=== PATIENT | female | born 2000 | race Two or more races ===

== ENCOUNTER 2020-02-20 02:59 | Emergency (ER) | payer MEDICAID, SELFPAY ==
[2020-02-20 03:11] VITALS: BMI 34.5
[2020-02-20 03:24] VITALS: BP 102/74; PULSE 94; RESP 20; TEMP 37.7; O2SAT 97
--- NOTE | 2020-02-20 03:36 | ED_ITS ---
HPI - URI/Sore Throat General Chief Complaint: Upper Respiratory Symptoms Stated Complaint: FLU LIKE SYMPTOMS Time Seen by Provider: 02/20/20 03:32 Source: patient Mode of arrival: ambulatory History of Present Illness HPI Narrative: This is a 20-year-old female with history of asthma who presents with concerns regarding sore throat cough some mild shortness of breath but states that she has lost her sense of taste and states that she has been having some chills. She reports that she has had COVID exposure via her sister. Related Data Previous Rx's Medication Instructions Recorded prednisone 40 mg PO DAILY 4 Days #8 tab 02/20/20 Allergies Allergy/AdvReac Type Severity Reaction Status Date / Time animal dander [ANIMAL HAIR] Allergy Unknown UNKNOWN Unverified 11/01/19 18:23 Review of Systems Review of Systems: Pertinent positives and negatives as stated in HPI 10 point review of systems is otherwise negative. PMFSH Past Medical History Source: nursing notes reviewed Medical History Asthma Social History Social History Alcohol intake: never Smoking Status: Never smoker Use of substances other than those prescribed or required for medical reasons: No Advance Directives: No Physical Exam Vital Signs: Vital Signs: Last Vital Signs Temp 99.9 F 02/20/20 03:24 Pulse 94 02/20/20 03:24 Resp 20 02/20/20 03:24 BP 102/74 02/20/20 03:24 Pulse Ox 97 02/20/20 03:24 Body Mass Index 34.5 VITAL SIGNS: Reviewed. GENERAL: Well developed, well nourished, in no acute distress. HEAD: Normocephalic/atraumatic, EYES: PERRLA, EOMI intact without pain EARS: Ext canals without abnormality, TMs non-bulging and non-erythematous NOSE: Nasal congestion OROPHARYNX: no oral lesions noted, posterior pharynx clear NECK: Supple, no adenopathy LUNGS: Good respiratory effort, bilateral expiratory wheezes noted, no attractions, no increased work of breathing SpO2<97> CARDIOVASCULAR: Regular rate and rhythm without noted murmurs, no JVD or lower extremity edema. ABDOMEN: Soft, non-tender, non-distended with bowel sounds. No rigidity. No guarding. No palpable masses or hernias noted NEUROLOGIC: Alert and oriented x 4. Course Course Course Narrative: This is a 20-year-old female with history and clinical presentation consistent with COVID-19 exposure, viral symptoms, and noted mild asthma like exacerbation without hypoxia or tachypnea. Patient will receive Bentyl in treatment and combination with prednisone as well as a COVID-19 swab. She was instructed to self or in until she was called with the results and will be placed on a short course of steroids. Discharge Plan Discharge Clinical Impression: Viral syndrome, Exposure to COVID-19 virus Asthma attack Qualifiers: Asthma severity: mild Asthma persistence: unspecified Qualified Code(s): J45.901 - Unspecified asthma with (acute) exacerbation Patient Disposition: Home, Self-Care Instructions: Asthma (ED), Viral Syndrome (ED) Additional Instructions: 1. Recommend [id number] Tylenol and/or ibuprofen for body aches, temperatures greater than 100.4 as directed on the outside packaging. 2. Increase fluids especially with water. 3. You are required to self quarantine as per the [facility] guidelines until you were called with the results of your COVID-19 teen testing. 4. Please follow-up with your primary care provider by calling the office this morning and setting up an appointment. Prescriptions: New prednisone 20 mg tablet 40 mg PO DAILY 4 Days Qty: 8 RF: 0 Referrals: [facility] [Primary Care Provider] - 2 days (Re-evaluation outpatient management of asthma.)
[2020-02-20] MEDS: Albuterol Sulfate 90 MCG 8 GM INHALER 4 PUFF INHALE (04:20)
[2020-02-20] MEDS: predniSONE 20 MG TABLET 40 MG PO (04:20)
== END 2020-02-20 04:30 | disposition home or self-care (01) ==
PROVIDERS: Emergency Provider Student in an Organized Health Care Education/Training Program
DX: B34.9 Viral infection, unspecified (principal); J45.901 Unspecified asthma with (acute) exacerbation; R05 Cough; R43.8 Other disturbances of smell and taste; Z20.828 Contact with and (suspected) exposure to other viral communicable diseases; Z79.899 Other long term (current) drug therapy
CPT/HCPCS: 36415; 99283; 99284; U0003

== ENCOUNTER 2020-07-13 00:25 | Emergency (ER) | payer MEDICAID, SELFPAY ==
--- NOTE | ~2020-07-13 | XR_ITS ---
EXAMINATION: XR CHEST CLINICAL INFORMATION: Shortness of breath COMPARISON: None TECHNIQUE: Frontal view of the chest was obtained. FINDINGS: The lungs are well expanded. There is no focal consolidation, edema, or effusion. No pneumothorax. The cardiomediastinal silhouette is within normal limits. No acute osseous abnormality. XR/XR chest 1V IMPRESSION: Clear lungs.
[2020-07-13 00:35] VITALS: BP 127/54; PULSE 81; RESP 18; TEMP 36.8; O2SAT 96; BMI 36.8
--- NOTE | 2020-07-13 01:21 | ED.ASTHMA ---
HPI - Asthma General Chief Complaint: Asthma Stated Complaint: SOB/cough Time Seen by Provider: 07/13/20 00:55 Source: patient Mode of arrival: ambulatory Limitations: no limitations History of Present Illness HPI Narrative: 20-year-old female came in for evaluation of shortness of breath. History of asthma, came in with 3 days of shortness of breath and expiratory wheezing, coughing with phlegm of clear white sputum. No fever, no sick contacts. No lower extremity swelling, no history of PE or DVT, no recent travel. Related Data Previous Rx's Medication Instructions Recorded prednisone 40 mg PO DAILY 4 Days #8 tab 02/20/20 albuterol sulfate [ProAir HFA] 1 inh INHALATION QID PRN #8.5 g 07/13/20 prednisone 20 mg PO BID #10 tab 07/13/20 Allergies Allergy/AdvReac Type Severity Reaction Status Date / Time animal dander [ANIMAL HAIR] Allergy Unknown UNKNOWN Unverified 11/01/19 18:23 Review of Systems Review of Systems: All other systems are reviewed and are negative Constitutional: Reports as per HPI and Reports no additional constitutional complaints Eyes: Reports as per HPI and Reports no additional eye complaints Reports system reviewed and no additional complaints, except as documented Cardiovascular: Reports as per HPI and Reports no additional cardiovascular complaints Respiratory: Reports as per HPI and Reports no additional respiratory complaints Gastrointestinal: Reports as per HPI and Reports no additional gastrointestinal complaints Genitourinary: Reports no additional female genitourinary complaints Musculoskeletal: Reports no additional musculoskeletal complaints Skin/Breast: Reports system reviewed and no additional complaints, except as docu Psychiatric: Reports no additional psychiatric complaints Endocrine: Reports no additional endocrine complaints Hematologic/Lymphatic: Reports no additional hematologic/lymphatic complaints Allergic/Immunologic: Reports no additional allergic/immunologic complaints Reports system reviewed and no additional complaints, except as documented and Reports Abnormal speech present [facility] Past Medical History Medical History Asthma Social History Social History Alcohol intake: never Patient Tobacco Use Status: Never used Tobacco Smoked in Last 30 Days: No Use of substances other than those prescribed or required for medical reasons: No Advance Directives: No Patient : No Physical Exam Vital Signs: Vital Signs: Last Vital Signs Temp 98.3 F 07/13/20 00:35 Pulse 82 05/30/21 02:08 Resp 14 07/13/20 02:00 BP 116/66 07/13/20 02:00 Pulse Ox 96 07/13/20 02:00 Body Mass Index 36.8 Vital signs have been reviewed as appeared to be correct. Blood pressure normal. Heart rate normal. Respiration rate normal. Temperature normal. Oxygen saturation normal. Appearance: Alert. Oriented X3. No acute distress. Head: Normal external exam. Normocephalic. Atraumatic. No Hopkins signs noted. No raccoon eyes noted Eyes: PERRLA. EOMI. Conjunctiva and sclera normal. Eyelids normal. ENT: TM's Normal. Pharynx normal. Uvula midline. Moist mucous membranes. No trismus noted. No drooling noted. No muffled voice noted. Neck: Normal inspection. Neck supple. FROM. No adenopathy. Thyroid Normal. No meningeal signs. No neck mass noted. CVS: Normal heart rate and rhythm. Heart sound normal. No murmurs noted. Pulses normal throughout. Respiratory: No respiratory distress. Painless inspiration. Breath sounds normal. Diffuse bilateral expiratory wheezing, no rales or rhonchi noted. Chest nontender. No accessory muscle usage noted or decreased air movement noted. Abdomen: Soft and nontender. Bowel sounds normal in all 4 quadrants. No distention noted. No organomegaly noted. No visible injury noted. Back: No CVA tenderness. Full range of motion noted. Skin: Skin warm and dry. Normal skin color. Normal skin turgor. No rashes/lesions/lacerations noted. Extremities: No lower extremity edema. Extremities exhibit normal range of motion. Extremities nontender. Neuro: Oriented X 3. No motor deficit. No sensory deficit. Reflexes normal. Course Course Course Narrative: Assessment and plan. 20-year-old female history of asthma came in for evaluation of wheezing for the last 3 days. Chest x-ray/physical exam/patient history are all consistent with acute asthma exacerbation. Start the patient on bronchodilator/prednisone/follow-up with PCP. MDM - Asthma Lab Data Attestation: I reviewed the patient's lab results. Labs: Lab Results 07/13/20 Range/Units 01:56 COVID-19 ([facility]) Negative (Negative) COVID-19 Clin Com See Note Imaging Data Chest x-ray: Radiologist's impression: Clear lungs. Discharge Plan Discharge Clinical Impression: Asthma with acute exacerbation Qualifiers: Asthma severity: moderate Asthma persistence: unspecified Qualified Code(s): J45.901 - Unspecified asthma with (acute) exacerbation Patient Disposition: Home, Self-Care Instructions: Asthma (ED) Prescriptions: New prednisone 20 mg tablet 20 mg PO BID Qty: 10 RF: 0 albuterol sulfate [ProAir HFA] 90 mcg/actuation HFA aerosol inhaler 1 inh inhalation QID PRN (Reason: shortness of breath or wheezing) Qty: 8.5 RF: 0 No Action prednisone 20 mg tablet 40 mg PO DAILY 4 Days Qty: 8 RF: 0 Referrals: [facility] [Primary Care Provider] - 2 days
[2020-07-13] MEDS: predniSONE 20 MG TABLET 40 MG PO (01:54)
[2020-07-13 02:00] VITALS: BP 116/66; PULSE 81; RESP 14; O2SAT 96
[2020-07-13] MEDS: Albuterol Sulfate (0.083%) 2.5 MG/3 ML VIAL.NEB 5 MG INHALE (02:05)
[2020-07-13] MEDS: Albuterol/Iprat 2.5/0.5MG 3 ML AMPUL.NEB INHALE (02:05)
[2020-07-13 02:08] VITALS: PULSE 82; O2SAT 94
[2020-07-13 02:16] LABS: COVID-19 Test Negative (Negative); IDNOW Serial# 9DD0AD1C
== END 2020-07-13 03:06 | disposition home or self-care (01) ==
PROVIDERS: Emergency Provider Emergency Medicine
DX: J45.901 Unspecified asthma with (acute) exacerbation (principal); Z20.822 Contact with and (suspected) exposure to COVID-19
CPT/HCPCS: 36415; 71045; 87635; 94640; 94644; 99284

== ENCOUNTER 2020-10-14 05:03 | Emergency (ER) | payer MEDICAID, SELFPAY ==
[2020-10-14 05:20] VITALS: BP 133/90; PULSE 84; RESP 18; TEMP 36.6; O2SAT 96; BMI 38.7
--- NOTE | 2020-10-14 06:36 | ED.SKABFB ---
HPI - Skin/Abscess/Foreign Bdy General Chief complaint: Skin/Abscess/Foreign Body Stated complaint: rash Time Seen by Provider: 10/14/20 06:35 Source: patient Mode of arrival: ambulatory Limitations: no limitations History of Present Illness MD complaint: rash Onset (ago): day(s) (2) Tetanus up to date: yes Location: genitals (bilateral groin area) Severity: moderate Quality: burning Pain Consistency: constant Relieving factors: none Exacerbating factors: palpation and movement Context: other (tried a new razor that was just one single blade) Associated symptoms: denies other symptoms Treatments prior to arrival: none Related Data Previous Rx's Medication Instructions Recorded prednisone 20 mg tablet 40 mg PO DAILY 4 Days #8 tab 02/20/20 albuterol sulfate 90 mcg/actuation 1 inh INHALATION QID PRN #8.5 g 07/13/20 aerosol inhaler (ProAir HFA) prednisone 20 mg tablet 20 mg PO BID #10 tab 07/13/20 clotrimazole-betamethasone 1 1 appl TOPICAL BID 7 Days #15 g 10/14/20 %-0.05 % topical cream mupirocin 2 % topical ointment 1 appl TOPICAL BID 7 Days #15 g 10/14/20 Allergies Allergy/AdvReac Type Severity Reaction Status Date / Time animal dander [ANIMAL HAIR] Allergy Unknown UNKNOWN Unverified 11/01/19 18:23 Review of Systems Review of Systems: Constitutional : No Fever, No Chills ENT/Mouth : No sore throat, No Rhinorrhea Eyes: No Eye Pain, No Swelling, No Redness Cardiovascular : No Chest Pain, No SOB Respiratory : No Cough, No Sputum Gastrointestinal : No Nausea, No Vomiting, No Diarrhea, No abdominal Pain Genitourinary : No Dysuria, No Hematuria Musculoskeletal : No joint pain, No Myalgias, No Joint Swelling Skin : No Skin Lesions, positive skin rash PMFSH Past Medical History Attestation statement: The following information was validated with the patient. Medical History Asthma Social History Social History Alcohol intake: never Patient Tobacco Use Status: Never used Tobacco Advance Directives: No Advance Directives Information Provided: No Patient : No Physical Exam Vital Signs: Vital Signs: Last Vital Signs Temp 97.9 F 10/14/20 05:20 Pulse 84 10/14/20 05:20 Resp 18 10/14/20 05:20 BP 133/90 H 10/14/20 05:20 Pulse Ox 96 10/14/20 05:20 Body Mass Index 38.7 Appearance: Alert. Oriented X3. No acute distress. Eyes: Pupils equal, round and reactive to light. ENT: Pharynx normal. Neck: Normal inspection. Neck supple. CVS: Normal heart rate and rhythm. Pulses normal. Respiratory: No respiratory distress. Breath sounds normal. Abdomen: Soft and non-tender. Groin: bilateral beefy red small areas with raised follicles that are red - no drainage, no abscess, no extending erythema Skin: Skin warm and dry. Normal skin color. Normal skin turgor. Extremities: No lower extremity edema. No calf ttp Neuro: Oriented X 3. No motor deficit. No sensory deficit. MDM - Skin/Abscess/Foreign Bdy MDM Narrative Medical decision making narrative: 20 yo female with folliculitis post shaving with a new razor - at this time will need topical treatmetns including mupirocin/antifungal/steroids - no signs of abscess. No signs of deeper space infection Discharge Plan Discharge Clinical Impression: Folliculitis Contact dermatitis Qualifiers: Contact dermatitis type: unspecified Contact dermatitis trigger: unspecified trigger Qualified Code(s): L25.9 - Unspecified contact dermatitis, unspecified cause Patient Disposition: Home, Self-Care Instructions: Contact Dermatitis (ED), Folliculitis (ED) Additional Instructions: return to ED for any worsening symptoms or concerns between the different ointments please allow 3 hours, apply mupirocin then wait 3 hours and apply the clotrimazole-betamethasone Prescriptions: New mupirocin 2 % ointment 1 appl topical BID 7 Days Qty: 15 RF: 0 clotrimazole-betamethasone 1-0.05 % cream 1 appl topical BID 7 Days Qty: 15 RF: 0 No Action prednisone 20 mg tablet 40 mg PO DAILY 4 Days Qty: 8 RF: 0 prednisone 20 mg tablet 20 mg PO BID Qty: 10 RF: 0 albuterol sulfate [ProAir HFA] 90 mcg/actuation HFA aerosol inhaler 1 inh inhalation QID PRN (Reason: shortness of breath or wheezing) Qty: 8.5 RF: 0 Referrals: [facility] [Primary Care Provider] - 2 days (if not better)
== END 2020-10-14 07:29 | disposition home or self-care (01) ==
PROVIDERS: Emergency Provider Emergency Medicine
DX: L73.9 Follicular disorder, unspecified (principal); L25.9 Unspecified contact dermatitis, unspecified cause
CPT/HCPCS: 99283

== ENCOUNTER 2021-05-31 07:01 | Emergency (ER) | payer MEDICAID, SELFPAY ==
[2021-05-31 07:14] VITALS: BP 122/74; PULSE 65; RESP 18; TEMP 36.5; O2SAT 98; BMI 43.4
--- NOTE | 2021-05-31 07:54 | ED.FEMALEGU ---
HPI - Female Genitourinary General Chief complaint: Urogenital-Female Stated complaint: Vaginal discomfort Time Seen by Provider: 05/31/21 07:53 Source: patient Mode of arrival: ambulatory Limitations: no limitations History of Present Illness HPI Narrative: 21 y/o female The ER with 3 days of vaginal itching and thick white vaginal discharge. She started a 7 day Monistat treatment 3 days ago with initial improvement in her symptoms however last night they started to worsen again and again this morning. She reports a sensitivity in the outside of her genitals with burning on urination and pain with wiping after she goes to the bathroom. She denies any lesions. She denies any foul-smelling discharge it continues to be white and thick she describes that his cottage cheese-like. She denies any STI concerns. She denies any nausea vomiting or abdominal pain. MD elicited complaint: dysuria and genital itching Onset (ago): day(s) (3) Location of symptoms: external genitalia and vaginal Severity: moderate Female Urogenital Radiation: Non-Radiating Severity scale (1-10): 5 Quality of pain: burning Consistency: intermittent Vaginal discharge: white and thick/cheesy Vaginal bleeding: none Urinary symptoms: Dysuria Exacerbating factors: urination and palpation Relieving factors: none Associated symptoms: denies other symptoms Treatment prior to arrival: OTC vaginal cream Sexual activity: Yes Patient : No Related Data Previous Rx's Medication Instructions Recorded prednisone 20 mg tablet 40 mg PO DAILY 4 Days #8 tab 02/20/20 albuterol sulfate 90 mcg/actuation 1 inh INHALATION QID PRN #8.5 g 07/13/20 aerosol inhaler (ProAir HFA) prednisone 20 mg tablet 20 mg PO BID #10 tab 07/13/20 clotrimazole-betamethasone 1 1 appl TOPICAL BID 7 Days #15 g 10/14/20 %-0.05 % topical cream mupirocin 2 % topical ointment 1 appl TOPICAL BID 7 Days #15 g 10/14/20 fluconazole 150 mg tablet 150 mg PO ONCE #1 tab 05/31/21 (Diflucan) Allergies Allergy/AdvReac Type Severity Reaction Status Date / Time animal dander [ANIMAL HAIR] Allergy Severe Hives Verified 05/31/21 07:13 Review of Systems Review of Systems: Constitutional: No Fever, No Chills ENT/Mouth: No sore throat Cardiovascular: No Chest Pain, No SOB Gastrointestinal: No Nausea, No Vomiting, No Diarrhea, No abdominal Pancho Genitourinary: + Dysuria, No Urinary Frequency, No Hematuria, +Vaginal discharge, +Vaginal itching, No external lesions Musculoskeletal: No joint pain, No Myalgias Skin: No Skin Lesions, No rash Psych: + Anxiety/Panic, No Depression Heme/Lymph: No Lymphadenopathy PMFSH Past Medical History Medical History Asthma Social History Social History Alcohol intake: never Patient Tobacco Use Status: Never used Tobacco Advance Directives: No Patient : No Physical Exam Vital Signs: Vital Signs: Last Vital Signs Temp 97.7 F 05/31/21 07:14 Pulse 65 05/31/21 07:14 Resp 18 05/31/21 07:14 BP 122/74 05/31/21 07:14 Pulse Ox 98 05/31/21 07:14 BMI result Body Mass Index 43.4 Appearance: Alert. Oriented X3. No acute distress. HEENT: normal inspection CVS: Normal heart rate and rhythm. Pulses normal. Respiratory: No respiratory distress. Skin: Skin warm and dry. Normal skin color. Normal skin turgor. No rashes. Abdomen: Soft, nontender, nondistended, normal bowel sounds x4. Pelvic: Normal appearing external genitalia, mild excoriations at the 6 o'clock position with thick white creamy discharge. Pelvic exam with intravaginal white thick vaginal discharge, normal appearing cervix, nontender throughout, no adnexal tenderness. Extremities: Normal external inspection, normal range of motion x4 Neuro: Oriented X 3. Grossly normal nonfocal Course Course Course Narrative: 21-year-old female presenting to the ER with complaints of vaginal itching and discharge. Her clinical presentation and examination today are consistent with a yeast infection. She is on day 3 of Monistat [id number] treatment. Will empirically give a dose of Diflucan. BV panel has been sent. No concern for STIs at this time. urinalysis is negative for infection. At this time she is stable for discharge home with plan to repeat Diflucan in 3 days if her symptoms persist. She will follow-up with her doctor as needed. Stable for DC. Discharge Plan Discharge Clinical Impression: Vaginal yeast infection Patient Disposition: Home, Self-Care Instructions: Yeast Infection (ED) Additional Instructions: Your urine test did not show any signs of a UTI. If your vaginal swab today shows bacterial vaginosis, we will call you and get you started on antibiotics for this. If you still have symptoms in 3 days, take the prescribed Diflucan. Continue using your [id number] Monistat to complete the 7 day course. Prescriptions: New fluconazole [Diflucan] 150 mg tablet 150 mg PO ONCE Qty: 1 0RF No Action prednisone 20 mg tablet 40 mg PO DAILY 4 Days Qty: 8 0RF mupirocin 2 % ointment 1 appl topical BID 7 Days Qty: 15 0RF clotrimazole-betamethasone 1-0.05 % cream 1 appl topical BID 7 Days Qty: 15 0RF prednisone 20 mg tablet 20 mg PO BID Qty: 10 0RF albuterol sulfate [ProAir HFA] 90 mcg/actuation HFA aerosol inhaler 1 inh inhalation QID PRN (Reason: shortness of breath or wheezing) Qty: 8.5 0RF Referrals: [facility] [Primary Care Provider] - 1 week ( Follow-up yeast infection)
[2021-05-31] MEDS: Fluconazole 150 MG TABLET PO (08:27)
[2021-05-31 08:42] LABS: Appearance Urine CLOUDY; Color Urine YELLOW; Glucose Urine UA NEG (NEG); Leukocyte Esterase Urine NEG (NEG); Nitrite Urine NEG (NEG); Specific Gravity - Urine >= 1.030 (1.005-1.025); Urine Blood NEG (NEG); Urine Ketones NEG (NEG); Urine Protein NEG (NEG-TRACE)
[2021-05-31 08:56] LABS: UPreg QC Valid YES; Urine Pregnancy NEGATIVE (NEGATIVE)
[2021-06-01 11:59] LABS: BV Int Neg Control Negative (Negative); BV Int Pos Control Positive (Positive)
== END 2021-05-31 08:58 | disposition home or self-care (01) ==
PROVIDERS: Physician Assistant; Emergency Provider Emergency Medicine
DX: B37.3 Candidiasis of vulva and vagina (principal); J45.909 Unspecified asthma, uncomplicated
CPT/HCPCS: 81003; 81025; 87480; 87510; 87660; 99283; 99284

== ENCOUNTER 2021-08-04 16:27 | Emergency (ER) | payer MEDICAID, SELFPAY ==
[2021-08-04 16:45] VITALS: BP 146/80; PULSE 89; RESP 18; TEMP 37.1; O2SAT 98; BMI 35.9
--- NOTE | 2021-08-04 19:51 | ED.FEMALEGU ---
HPI - Female Genitourinary General Chief complaint: Urogenital-Female Stated complaint: nausea/cramps/on and off vaginal bleeding Time Seen by Provider: 08/04/21 18:56 Source: patient Mode of arrival: ambulatory History of Present Illness HPI Narrative: 21-year-old female without significant past medical history who presents with complaints lower abdominal cramping and vaginal spotting and states that her. Has not been normal for the past couple of months. She denies any abnormal vaginal discharge or foul odors. Patient states that she is sexually active without protection and otherwise denies any fever, chills, GI or symptoms. Related Data Previous Rx's Medication Instructions Recorded prednisone 20 mg tablet 40 mg PO DAILY 4 days #8 tabs 02/20/20 albuterol sulfate 90 mcg/actuation 1 inh inhalation QID PRN shortness 07/13/20 aerosol inhaler (ProAir HFA) of breath or wheezing #8.5 grams prednisone 20 mg tablet 20 mg PO BID #10 tabs 07/13/20 clotrimazole-betamethasone 1 1 appl topical BID 7 days #15 grams 10/14/20 %-0.05 % topical cream mupirocin 2 % topical ointment 1 appl topical BID 7 days #15 grams 10/14/20 fluconazole 150 mg tablet 150 mg PO ONCE #1 tab 05/31/21 (Diflucan) Allergies Allergy/AdvReac Type Severity Reaction Status Date / Time animal dander [ANIMAL HAIR] Allergy Severe Hives Verified 05/31/21 07:13 Review of Systems Review of Systems: Pertinent positives and negatives as per HPI 10 point review of systems is otherwise negative. [facility] Past Medical History Source: nursing notes reviewed Social History Social History Alcohol intake: never Patient Tobacco Use Status: Never used Tobacco Advance Directives: No Advance Directives Information Provided: No Physical Exam Vital Signs: Vital Signs: Last Vital Signs Temp 98.8 F 08/04/21 16:45 Pulse 89 08/04/21 16:45 Resp 18 08/04/21 16:45 BP 146/80 H 08/04/21 16:45 Pulse Ox 98 08/04/21 16:45 O2 Del Method 08/04/21 16:45 BMI result Body Mass Index 35.9 VITAL SIGNS: Reviewed. GENERAL: Well developed, well nourished, in no acute distress. HEAD: Normocephalic/atraumatic EYES: PERRLA, EOMI EARS: Ext canals without abnormality OROPHARYNX: no oral lesions noted, posterior pharynx clear LUNGS: Normal breath sounds. No adventitious sounds or accessory muscle use. SpO2<98> CARDIOVASCULAR: Regular rate and rhythm without noted murmurs ABDOMEN: Soft, non-tender, non-distended with bowel sounds. MUSCULOSKELETAL: No tenderness, deformities, or effusions noted on gross inspection. EXTREMITIES: No cyanosis, clubbing or edema. SKIN: Inspection of the skin reveals no rashes NEUROLOGIC: Alert and oriented x 4. Strength and sensation to light touch were grossly intact x 4. Course Course Course Narrative: 21-year-old female with history and clinical presentation after review of investigations consistent with likely menstrual symptoms. Patient's test is negative and there is no evidence of UTI. Otherwise, there is no evidence infection, all results discussed with patient at bedside she was discharged home in stable condition. Although the STI screening is pending patient has limited symptoms to suggest infection. This all was discussed with her bedside and she was provided with combination analgesics and then discharged home. MDM - Female Genitourinary Lab Data Labs: Lab Results 08/04/21 08/04/21 Range/Units 20:15 20:15 Urine Color YELLOW Urine Appearance CLEAR Urine pH 6.5 (5.0-8.0) Ur Specific [place] 1.020 (1.005-1.025) Urine Protein NEG (NEG-TRACE) MG/DL Urine Glucose (UA) NEG (NEG) MG/DL Urine Ketones NEG (NEG) MG/DL Urine Blood NEG (NEG) Urine Nitrite NEG (NEG) Ur Leukocyte Esterase NEG (NEG) Urine Test NEGATIVE (NEGATIVE) Discharge Plan Discharge Clinical Impression: Irregular menses Patient Disposition: Home, Self-Care Instructions: Dysfunctional Uterine Bleeding (ED) Additional Instructions: 1. Recommend [id number] Tylenol/ ibuprofen as needed for menstrual discomfort. Also recommend using a heating pad for additional symptom relief. 2. Recommend that you follow-up either through the patient portal, or via your primary care provider to review the results of your sexually transmitted infection testing. You were not empirically treated today due to no significant symptoms to suggest this as a possible source. 3. Please follow-up with primary care provider in the next 1-2 days. Return to the ER for any worsening symptoms. Prescriptions: No Action prednisone 20 mg tablet 40 mg PO DAILY 4 Days Qty: 8 0RF mupirocin 2 % ointment 1 appl topical BID 7 Days Qty: 15 0RF clotrimazole-betamethasone 1-0.05 % cream 1 appl topical BID 7 Days Qty: 15 0RF prednisone 20 mg tablet 20 mg PO BID Qty: 10 0RF albuterol sulfate [ProAir HFA] 90 mcg/actuation HFA aerosol inhaler 1 inh inhalation QID PRN (Reason: shortness of breath or wheezing) Qty: 8.5 0RF fluconazole [Diflucan] 150 mg tablet 150 mg PO ONCE Qty: 1 0RF
[2021-08-04 20:25] LABS: Appearance Urine CLEAR; Color Urine YELLOW; Glucose Urine UA NEG (NEG); Leukocyte Esterase Urine NEG (NEG); Nitrite Urine NEG (NEG); PH 6.5 (5.0-8.0); Urine Blood NEG (NEG); Urine Ketones NEG (NEG); Urine Protein NEG (NEG-TRACE)
[2021-08-04 20:26] LABS: UPreg QC Valid YES; Urine Pregnancy NEGATIVE (NEGATIVE)
[2021-08-04 20:54] VITALS: BP 133/85; PULSE 58; RESP 16; TEMP 36.6; O2SAT 100
[2021-08-05 03:04] LABS: CT PCR DETECTED (Not Detect.)
[2021-08-05 03:05] LABS: NG PCR NOT DETECTED (Not Detect.)
== END 2021-08-04 21:01 | disposition home or self-care (01) ==
PROVIDERS: Emergency Provider Student in an Organized Health Care Education/Training Program
DX: N93.9 Abnormal uterine and vaginal bleeding, unspecified (principal); R11.2 Nausea with vomiting, unspecified; R10.30 Lower abdominal pain, unspecified; N92.6 Irregular menstruation, unspecified; Z79.899 Other long term (current) drug therapy
CPT/HCPCS: 81003; 81025; 87491; 87591; 99283

== ENCOUNTER 2021-08-07 21:50 | Emergency (ER) | payer MEDICAID, SELFPAY ==
[2021-08-07 22:08] VITALS: BP 144/91; PULSE 92; RESP 18; TEMP 37; O2SAT 99; BMI 43.7
--- NOTE | 2021-08-07 22:08 | ED.FEMALEGU ---
HPI - Female Genitourinary General Chief complaint: General Medical Stated complaint: Abnormal labs/ Called by [facility] to return to ER Time Seen by Provider: 08/07/21 22:01 Source: patient Mode of arrival: ambulatory Limitations: no limitations History of Present Illness HPI Narrative: 21-year-old female presents for abnormal lab results from an evaluation for abnormal bleeding on 08/04/2021. MD elicited complaint: other (STI.) Onset (ago): month(s) (2) Location of symptoms: vaginal Severity: mild Quality of pain: cramping Consistency: intermittent Vaginal discharge: none Vaginal bleeding: scant Exacerbating factors: none Relieving factors: none Associated symptoms: denies other symptoms Treatment prior to arrival: none Sexual activity: Yes Patient : No Related Data Previous Rx's Medication Instructions Recorded prednisone 20 mg tablet 40 mg PO DAILY 4 days #8 tabs 02/20/20 albuterol sulfate 90 mcg/actuation 1 inh inhalation QID PRN shortness 07/13/20 aerosol inhaler (ProAir HFA) of breath or wheezing #8.5 grams prednisone 20 mg tablet 20 mg PO BID #10 tabs 07/13/20 clotrimazole-betamethasone 1 1 appl topical BID 7 days #15 grams 10/14/20 %-0.05 % topical cream mupirocin 2 % topical ointment 1 appl topical BID 7 days #15 grams 10/14/20 fluconazole 150 mg tablet 150 mg PO ONCE #1 tab 05/31/21 (Diflucan) doxycycline hyclate 100 mg capsule 100 mg PO BID 7 days #14 caps 08/07/21 Allergies Allergy/AdvReac Type Severity Reaction Status Date / Time animal dander [ANIMAL HAIR] Allergy Severe Hives Verified 05/31/21 07:13 Review of Systems Review of Systems: Constitutional: No Fever, No Chills ENT/Mouth: No Ear Pain, No Hoarseness, No sore throat Eyes: No Eye Pain, No Swelling, No Redness, No Foreign Body Cardiovascular: No Chest Pain, No SOB Respiratory: No Cough, No Dyspnea Gastrointestinal: No Nausea, No Vomiting, No Diarrhea, No abdominal Pain Genitourinary: Positive chlamydia test, No Dysuria, No Hematuria Musculoskeletal: No joint pain, No Myalgias, No Joint Swelling Skin: No Skin lacerations, No rash Neuro: No Weakness, No Numbness, No Paresthesias, No Loss of Consciousness, No Dizziness, No Headache Psych: No Anxiety/Panic, No Depression Heme/Lymph: no easy bruising, no Lymphadenopathy Endocrine: No Polyuria, No Polydipsia Yes all other systems are reviewed and are negative [facility] Past Medical History Attestation statement: The following information was validated with the patient. Source: old records reviewed Social History Social History Alcohol intake: never Patient Tobacco Use Status: Never used Tobacco Advance Directives: No Patient : No Physical Exam Vital Signs: Vital Signs: Last Vital Signs Temp 98.6 F 08/07/21 22:08 Pulse 92 08/07/21 22:08 Resp 18 08/07/21 22:08 BP 144/91 H 08/07/21 22:08 Pulse Ox 99 08/07/21 22:08 O2 Del Method 08/07/21 22:08 BMI result Body Mass Index 43.7 Appearance: Alert. Oriented X3. No acute distress. Eyes: Pupils equal, round and reactive to light. ENT: Pharynx normal. Neck: Normal inspection. Neck supple. CVS: Normal heart rate and rhythm. Pulses normal. Respiratory: No respiratory distress. Breath sounds normal. Abdomen: Soft and nontender. Skin: Skin warm and dry. Normal skin color. Normal skin turgor. Extremities: Gait well-balanced well coordinated. Neuro: No motor deficit. No sensory deficit. Cranial nerves 2-12 intact. Course Course Course Narrative: 21-year-old female presents with positive chlamydia test from 08/04/2021. I had a detailed conversation with this patient regarding STI, treatment, and signs and symptoms indicating need for emergent intervention and further treatment. Emotional support was provided Patient verbalized understanding of and agrees plan of care discharge home. Verbalized understanding of signs and symptoms indicating need for emergent intervention. MDM - Female Genitourinary MDM Narrative Medical decision making narrative: STI Medical Records Attestation: I reviewed the patient's medical records. Lab Data Attestation: I reviewed the patient's lab results. Lab results narrative: Lab results reviewed from 08/04/2021 Discharge Plan Discharge Clinical Impression: Chlamydia Patient Disposition: Home, Self-Care Instructions: Chlamydia (ED) Additional Instructions: You were treated for a positive chlamydia test. We gave you 500 mg of ceftriaxone intramuscularly. And we gave you 1000 mg of azithromycin orally. You do not need further treatment for this occurrence. If you become reinfected he will need to be re-treated. Please inform your partner. Thank you for choosing this emergency department for evaluation. Please follow-up with primary care physician as needed. Return to the emergency department for any new, concerning, or worsening symptoms. Prescriptions: No Action prednisone 20 mg tablet 40 mg PO DAILY 4 Days Qty: 8 0RF mupirocin 2 % ointment 1 appl topical BID 7 Days Qty: 15 0RF clotrimazole-betamethasone 1-0.05 % cream 1 appl topical BID 7 Days Qty: 15 0RF prednisone 20 mg tablet 20 mg PO BID Qty: 10 0RF albuterol sulfate [ProAir HFA] 90 mcg/actuation HFA aerosol inhaler 1 inh inhalation QID PRN (Reason: shortness of breath or wheezing) Qty: 8.5 0RF fluconazole [Diflucan] 150 mg tablet 150 mg PO ONCE Qty: 1 0RF doxycycline hyclate 100 mg capsule 100 mg PO BID 7 Days Qty: 14 0RF Referrals: [facility] [Provider Group] Interventions: ED Discharge Assessment Last Done: 08/07/21 22:58 Discharge Date/Time: 08/07/21 22:59
[2021-08-07] MEDS: cefTRIAXone sodium 500 MG, Lidocaine HCl 1 % MPF 1 ML IM (22:41)
[2021-08-07] MEDS: Azithromycin 500 MG TABLET 1000 MG PO (22:41)
== END 2021-08-07 22:59 | disposition home or self-care (01) ==
PROVIDERS: Emergency Provider Emergency Medicine
DX: A74.9 Chlamydial infection, unspecified (principal); R10.2 Pelvic and perineal pain; Z79.899 Other long term (current) drug therapy
CPT/HCPCS: 96372; 99282; 99284; J0696

== ENCOUNTER 2022-01-09 11:48 | Emergency (ER) | payer OTHER, SELFPAY ==
--- NOTE | ~2022-01-09 | XR_ITS ---
EXAMINATION: XR CHEST CLINICAL INFORMATION: Cough, history of asthma COMPARISON: Chest x-ray on 07/13/2020 TECHNIQUE: 2 views of the chest were obtained. FINDINGS: No significant abnormality is noted involving the heart, lungs, mediastinum, bony thorax or soft tissues. XR/XR chest 2V IMPRESSION: Unremarkable examination.
--- NOTE | 2022-01-09 12:05 | ED.NAVMDI ---
HPI - Nausea/Vomiting/Diarrhea General Chief complaint: General Medical <Alba Garcia CNP - Last Filed: 01/09/22 12:13> Stated complaint: vomiting and diarrhea lightheaded <Alba Garcia CNP - Last Filed: 01/09/22 12:13> Time Seen by Provider: 01/09/22 14:10 <Alba Garcia CNP - Last Filed: 01/09/22 12:13> Source: patient <ARNOL Campbell - Last Filed: 01/09/22 16:01> Mode of arrival: ambulatory <ARNOL Campbell Last Filed: 01/09/22 16:01> Limitations: no limitations <ARNOL Campbell Last Filed: 01/09/22 16:01> History of Present Illness HPI Narrative: 21-year-old female with history of mild intermittent asthma, obesity presents to the ER for evaluation of 4 days of intermittent fevers, coughing, shortness of breath, nausea, vomiting, dizziness and generally not feeling well. She has had a call at work last 4 days. She states she has been not able to eat or drink much at all in the last 4 days. She states her breathing is worse when she lays flat and she has run out of her inhaler from using it so frequently. She states her cough is dry she is not bringing up any phlegm. She has increased nasal congestion and runny nose along with headaches and body aches. She has not vaccinated for influenza. She denies any known sick contacts. <ARNOL Campbell - Last Filed: 01/09/22 16:01> MD elicited complaint: nausea, vomiting, diarrhea and other (Fever, cough) <ARNOL Campbell Last Filed: 01/09/22 16:01> Onset (ago): day(s) (4) <ARNOL Campbell Last Filed: 01/09/22 16:01> Description of diarrhea: semi-solid <ARNOL Campbell Last Filed: 01/09/22 16:01> Associated nausea: Yes <ARNOL Campbell Last Filed: 01/09/22 16:01> Associated abdominal pain: No <ARNOL Campbell Last Filed: 01/09/22 16:01> Location of pain: none <ARNOL Campbell Last Filed: 01/09/22 16:01> Pain consistency: intermittent <ARNOL Campbell Last Filed: 01/09/22 16:01> Severity: moderate <ARNOL Campbell Last Filed: 01/09/22 16:01> Exacerbating factors: eating <ARNOL Campbell - Last Filed: 01/09/22 16:01> Relieving factors: none <ARNOL Campbell - Last Filed: 01/09/22 16:01> Associated symptoms: myalgias, cough, fever/chills, headaches, loss of appetite, malaise, nausea/vomiting, shortness of breath, weakness and fatigue <ARNOL Campbell - Last Filed: 01/09/22 16:01> Related Data Home medications: Previous Rx's Medication Instructions Recorded prednisone 20 mg tablet 40 mg PO DAILY 4 days #8 tabs 02/20/20 albuterol sulfate 90 mcg/actuation 1 inh inhalation QID PRN shortness 07/13/20 aerosol inhaler (ProAir HFA) of breath or wheezing #8.5 grams prednisone 20 mg tablet 20 mg PO BID #10 tabs 07/13/20 clotrimazole-betamethasone 1 1 appl topical BID 7 days #15 grams 10/14/20 %-0.05 % topical cream mupirocin 2 % topical ointment 1 appl topical BID 7 days #15 grams 10/14/20 fluconazole 150 mg tablet 150 mg PO ONCE #1 tab 05/31/21 (Diflucan) doxycycline hyclate 100 mg capsule 100 mg PO BID 7 days #14 caps 08/07/21 albuterol sulfate 90 mcg/actuation 2 inh inhalation QID PRN shortness 01/09/22 aerosol inhaler of breath or wheezing #6.7 grams ondansetron 4 mg disintegrating 4 mg PO Q8H PRN nausea and 01/09/22 tablet vomiting #7 tabs <Alba Garcia CNP - Last Filed: 01/09/22 12:13> Allergies/Adverse reactions: Allergies Allergy/AdvReac Type Severity Reaction Status Date / Time animal dander [ANIMAL HAIR] Allergy Severe Hives Verified 05/31/21 07:13 <Alba Garcia CNP - Last Filed: 01/09/22 12:13> Review of Systems Review of Systems: Constitutional: +Fever, +Chills ENT/Mouth: + sore throat, No Rhinorrhea, No Swallowing Difficulty Eyes: No Eye Pain, No Swelling, No Redness Cardiovascular: No Chest Pain, + SOB, No Orthopnea, No Edema Respiratory: + Cough, No Sputum, + Wheezing, No dyspnea Gastrointestinal: + Nausea, + Vomiting, + Diarrhea, No abdominal Pain, No Hematochezia, No Melena Genitourinary: No Dysuria, No Urinary Frequency, No Hematuria Musculoskeletal: No joint pain, + Myalgias Skin: No Skin Lesions, No rash Neuro: No Weakness, No Numbness, + Dizziness, + Headache Psych: + Anxiety/Panic Heme/Lymph: No Bruising, No Lymphadenopathy Endocrine: No Polyuria, No Polydipsia <ARNOL Campbell - Last Filed: 01/09/22 16:01> Gastrointestinal: Gastrointestinal: Reports nausea <ARNOL Campbell - Last Filed: 01/09/22 16:01> [facility] Past Medical History Medical History: Medical History (Updated 01/09/22 @ 15:15 by ARNOL Campbell) Asthma <Alba Garcia CNP - Last Filed: 01/09/22 12:13> Social History Social History: Social History Alcohol intake: never Patient Tobacco Use Status: Never used Tobacco Advance Directives: No Advance Directives Information Provided: No <Alba Garcia CNP - Last Filed: 01/09/22 12:13> Physical Exam Vital Signs: Vital Signs: Last Vital Signs Temp 98.2 F 01/09/22 15:44 Pulse 55 01/09/22 15:44 Resp 18 01/09/22 15:44 BP 110/75 01/09/22 15:44 Pulse Ox 100 01/09/22 15:44 O2 Del Method 01/09/22 15:44 BMI result Body Mass Index 33.6 <Alba Garcia CNP - Last Filed: 01/09/22 12:13> Vital Signs: Last Vital Signs Temp 98.2 F 01/09/22 15:44 Pulse 55 01/09/22 15:44 Resp 18 01/09/22 15:44 BP 110/75 01/09/22 15:44 Pulse Ox 100 01/09/22 15:44 O2 Del Method 01/09/22 15:44 BMI result Body Mass Index 33.6 <ARNOL Campbell - Last Filed: 01/09/22 16:01> Appearance: Alert female in her early 20s. Oriented X3. Appears as if she does not feel well. Sitting up on the stretcher Eyes: Pupils equal, round and reactive to light. ENT: Pharynx normal. Moist mucous membranes. Tonsils without erythema or exudate. Neck: Normal inspection. Neck supple. CVS: Normal heart rate and rhythm. Pulses normal. Respiratory: No respiratory distress. Breath sounds normal. No wheezing or rhonchi. Abdomen: Obese, Soft and nontender. +BS x4 Skin: Skin warm and dry. Normal skin color. Normal skin turgor. No rashes. Extremities: No lower extremity edema. Neuro: Oriented X 3. No motor deficit. No sensory deficit. Steady gait. <ARNOL Campbell - Last Filed: 01/09/22 16:01> Course Course Course Narrative: RME: Patient is a 21-year-old female with a pmhx of asthma, anemia. Presents for evaluation of 5 days with nasal congestion, cold sweats, nausea, vomiting, diarrhea. Trialed mucinex, cough syrup with minimal relief. Vomiting 3-4 times daily yellow/ bile, diarrhea 5-6 times daily, green liquidy with bright red blood. Epigastric pain that is made worse with vomiting. is ill with similar symptoms, who tested negative for COVID. PE: diffuse AND tenderness upon examination, no signs of systemic toxicity. no respiratory distress Plan: CBC, CMP, lipase, urinalysis, ondansetron sublingual for nausea, COVID-19 testing, influenza testing. <Alba Garcia CNP - Last Filed: 01/09/22 12:13> Reevaluation(s) Reevaluation #1: 21-year-old female presents to the ER with 4 days of not feeling well, complaints include nausea, vomiting, diarrhea, cough, shortness of breath, fever, chills and body aches. Arrival to the ER vital signs are stable, afebrile. Her lungs are clear abdomen is soft. Her basic labs done in triage show some mild anemia, WBC 3.6. Other lab workup was unremarkable. Her viral PCR returned positive for influenza A. She is out of the treatment window for Tamiflu. She feels dehydrated. Will medicate with IV fluids, IV Toradol, IV Zofran and reassess. She is asking for water. Will reassess. <ARNOL Campbell - Last Filed: 01/09/22 16:01> Reevaluation #2: Chest x-ray is clear. Tolerating p.o.. Stable for discharge home with supportive care. <ARNOL Campbell - Last Filed: 01/09/22 16:01> Medications Administered Discontinued Medications Generic Name Dose Route Start Last Admin Trade Name Freq PRN Reason Stop Dose Admin Lactated Ringer's 1,000 mls @ 999 mls/hr 01/09/22 14:15 01/09/22 14:37 Lr IV 01/09/22 15:15 999 mls/hr .Q1H1M ADOLFO Administration Ketorolac Tromethamine 15 mg 01/09/22 14:15 01/09/22 14:37 Ketorolac Tromethamine 15 Mg/Ml Vial IVPUSH 01/09/22 14:16 15 mg ONCE ONE Administration Ondansetron HCl 4 mg 01/09/22 12:09 01/09/22 12:14 Ondansetron Odt 4 Mg Tab.Rapdis TRANSLINGU 01/09/22 12:10 4 mg ONCE ONE Administration <Alba Garcia CNP - Last Filed: 01/09/22 12:13> Medications Administered Discontinued Medications Generic Name Dose Route Start Last Admin Trade Name Freq PRN Reason Stop Dose Admin Lactated Ringer's 1,000 mls @ 999 mls/hr 01/09/22 14:15 01/09/22 14:37 Lr IV 01/09/22 15:15 999 mls/hr .Q1H1M ADOLFO Administration Ketorolac Tromethamine 15 mg 01/09/22 14:15 01/09/22 14:37 Ketorolac Tromethamine 15 Mg/Ml Vial IVPUSH 01/09/22 14:16 15 mg ONCE ONE Administration Ondansetron HCl 4 mg 01/09/22 12:09 01/09/22 12:14 Ondansetron Odt 4 Mg Tab.Mauricio SILVERMANINGU 01/09/22 12:10 4 mg ONCE ONE Administration <ARNOL Campbell - Last Filed: 01/09/22 16:01> MDM - Nausea/Vomiting/Diarrhea Lab Data Result diagrams: : 01/09/22 12:19 01/09/22 12:19 <Alba Garcia CNP - Last Filed: 01/09/22 12:13> Labs: Lab Results 01/09/22 01/09/22 01/09/22 Range/Units 12:13 12:13 12:19 WBC 3.6 L (4.8-10.8) X10*3/uL RBC 4.58 (4.20-5.50) X10*6/uL Hgb 11.9 L (12.0-16.0) g/dl Hct 36.3 L (37.0-47.0) % MCV 79.3 L (80.0-98.0) fL MCH 26.0 L (27.0-33.0) pg MCHC 32.8 (31.0-35.0) g/dl RDW 13.6 (11.0-16.0) % Plt Count 280 (160-400) X10*3/uL MPV 11.0 (9.4-12.3) fL Immature Gran % (Auto) 0.3 (0.0-0.4) % Neut % (Auto) 39.6 L (45-73) % Lymph % (Auto) 45.5 H (20-40) % [place] % (Auto) 13.2 H (2-11) % Eos % (Auto) 0.8 (0-4) % Baso % (Auto) 0.6 (0-2) % Lymph # (Auto) 1.7 (1.2-4.9) X10*3/uL [place] # (Auto) 0.5 (0.1-1.2) X10*3/uL Eos # (Auto) 0.0 (0.0-0.4) X10*3/uL Baso # (Auto) 0.0 (0.0-0.2) X10*3/uL Abs Immat Gran (auto) 0.01 (0.00-0.03) X10*3/uL Absolute Neuts (auto) 1.4 L (2.0-8.3) x10*3/uL Absolute Nucleated RBC 0.000 (0.0-0.012) X10*3/uL Nucleated RBC % (auto) 0.0 (0.0-0.2) /100WBC Sodium (135-145) mmol/L Potassium (3.3-5.1) mmol/L Chloride (96-108) mmol/L Carbon Dioxide (22-29) mmol/L Anion Gap (12-20) BUN (9-16) mg/dL Creatinine (0.5-1.4) mg/dL Estim Creat Clear Calc Estimated GFR Random Glucose (60-115) mg/dL Calcium (8.4-10.2) mg/dL Total Bilirubin (0.0-1.0) mg/dL AST (5-31) U/L ALT (0-31) U/L Alkaline Phosphatase (39-117) U/L Total Protein (6.5-8.0) g/dL Albumin (3.5-5.0) g/dL Lipase (8-78) U/L Urine Color Urine Appearance Urine pH (5.0-9.0) Ur Specific [place] (1.005-1.025) Urine Protein (Neg-Trace) mg/dL Urine Glucose (UA) (Negative) mg/dL Urine Ketones (Negative) mg/dL Urine Blood (Negative) Urine Nitrite (Negative) Ur Leukocyte Esterase (Negative) Urine RBC (0-2) /HPF Urine WBC (0-5) /HPF Ur Squamous Epith Cells (0-2) /HPF Urine Bacteria (None Seen) Hyaline Casts (0-2) /LPF Urine Test (NEGATIVE) COVID-19 (CARLYLE) Negative (Negative) COVID-19 Clin Com See Note Influenza Type A (HERNANDEZ) Positive A (Negative) Influenza Type B (HERNANDEZ) Negative (Negative) Influenza A & B Note See Note 01/09/22 01/09/22 01/09/22 Range/Units 12:19 14:33 14:33 WBC (4.8-10.8) X10*3/uL RBC (4.20-5.50) X10*6/uL Hgb (12.0-16.0) g/dl Hct (37.0-47.0) % MCV (80.0-98.0) fL MCH (27.0-33.0) pg MCHC (31.0-35.0) g/dl RDW (11.0-16.0) % Plt Count (160-400) X10*3/uL MPV (9.4-12.3) fL Immature Gran % (Auto) (0.0-0.4) % Neut % (Auto) (45-73) % Lymph % (Auto) (20-40) % [place] % (Auto) (2-11) % Eos % (Auto) (0-4) % Baso % (Auto) (0-2) % Lymph # (Auto) (1.2-4.9) X10*3/uL [place] # (Auto) (0.1-1.2) X10*3/uL Eos # (Auto) (0.0-0.4) X10*3/uL Baso # (Auto) (0.0-0.2) X10*3/uL Abs Immat Gran (auto) (0.00-0.03) X10*3/uL Absolute Neuts (auto) (2.0-8.3) x10*3/uL Absolute Nucleated RBC (0.0-0.012) X10*3/uL Nucleated RBC % (auto) (0.0-0.2) /100WBC Sodium 141 (135-145) mmol/L Potassium 4.0 (3.3-5.1) mmol/L Chloride 107 (96-108) mmol/L Carbon Dioxide 23 (22-29) mmol/L Anion Gap 15 (12-20) BUN 14 (9-16) mg/dL Creatinine 0.83 (0.5-1.4) mg/dL Estim Creat Clear Calc 109.7 Estimated GFR > 60 Random Glucose 111 (60-115) mg/dL Calcium 9.0 (8.4-10.2) mg/dL Total Bilirubin 0.5 (0.0-1.0) mg/dL AST 34 H (5-31) U/L ALT 30 (0-31) U/L Alkaline Phosphatase 68 (39-117) U/L Total Protein 7.6 (6.5-8.0) g/dL Albumin 4.4 (3.5-5.0) g/dL Lipase 17 (8-78) U/L Urine Color Dark Yellow Urine Appearance Cloudy Urine pH 6.0 (5.0-9.0) Ur Specific [place] >= 1.030 H (1.005-1.025) Urine Protein 30 (1+) H (Neg-Trace) mg/dL Urine Glucose (UA) Negative (Negative) mg/dL Urine Ketones Trace (Negative) mg/dL Urine Blood Large (3+) H (Negative) Urine Nitrite Negative (Negative) Ur Leukocyte Esterase Trace H (Negative) Urine RBC >20 H (0-2) /HPF Urine WBC 0-5 (0-5) /HPF Ur Squamous Epith Cells 6-10 (0-2) /HPF Urine Bacteria None Seen (None Seen) Hyaline Casts 0-2 (0-2) /LPF Urine Test NEGATIVE (NEGATIVE) COVID-19 (CARLYLE) (Negative) COVID-19 Clin Com Influenza Type A (HERNANDEZ) (Negative) Influenza Type B (HERNANDEZ) (Negative) Influenza A & B Note <Alba Garcia, BRIDGETTE - Last Filed: 01/09/22 12:13> Lab Results 01/09/22 01/09/22 01/09/22 Range/Units 12:13 12:13 12:19 WBC 3.6 L (4.8-10.8) X10*3/uL RBC 4.58 (4.20-5.50) X10*6/uL Hgb 11.9 L (12.0-16.0) g/dl Hct 36.3 L (37.0-47.0) % MCV 79.3 L (80.0-98.0) fL MCH 26.0 L (27.0-33.0) pg MCHC 32.8 (31.0-35.0) g/dl RDW 13.6 (11.0-16.0) % Plt Count 280 (160-400) X10*3/uL MPV 11.0 (9.4-12.3) fL Immature Gran % (Auto) 0.3 (0.0-0.4) % Neut % (Auto) 39.6 L (45-73) % Lymph % (Auto) 45.5 H (20-40) % [place] % (Auto) 13.2 H (2-11) % Eos % (Auto) 0.8 (0-4) % Baso % (Auto) 0.6 (0-2) % Lymph # (Auto) 1.7 (1.2-4.9) X10*3/uL [place] # (Auto) 0.5 (0.1-1.2) X10*3/uL Eos # (Auto) 0.0 (0.0-0.4) X10*3/uL Baso # (Auto) 0.0 (0.0-0.2) X10*3/uL Abs Immat Gran (auto) 0.01 (0.00-0.03) X10*3/uL Absolute Neuts (auto) 1.4 L (2.0-8.3) x10*3/uL Absolute Nucleated RBC 0.000 (0.0-0.012) X10*3/uL Nucleated RBC % (auto) 0.0 (0.0-0.2) /100WBC Sodium (135-145) mmol/L Potassium (3.3-5.1) mmol/L Chloride (96-108) mmol/L Carbon Dioxide (22-29) mmol/L Anion Gap (12-20) BUN (9-16) mg/dL Creatinine (0.5-1.4) mg/dL Estim Creat Clear Calc Estimated GFR Random Glucose (60-115) mg/dL Calcium (8.4-10.2) mg/dL Total Bilirubin (0.0-1.0) mg/dL AST (5-31) U/L ALT (0-31) U/L Alkaline Phosphatase (39-117) U/L Total Protein (6.5-8.0) g/dL Albumin (3.5-5.0) g/dL Lipase (8-78) U/L Urine Color Urine Appearance Urine pH (5.0-9.0) Ur Specific [place] (1.005-1.025) Urine Protein (Neg-Trace) mg/dL Urine Glucose (UA) (Negative) mg/dL Urine Ketones (Negative) mg/dL Urine Blood (Negative) Urine Nitrite (Negative) Ur Leukocyte Esterase (Negative) Urine RBC (0-2) /HPF Urine WBC (0-5) /HPF Ur Squamous Epith Cells (0-2) /HPF Urine Bacteria (None Seen) Hyaline Casts (0-2) /LPF Urine Test (NEGATIVE) COVID-19 (CARLYLE) Negative (Negative) COVID-19 Clin Com See Note Influenza Type A (HERNANDEZ) Positive A (Negative) Influenza Type B (HERNANDEZ) Negative (Negative) Influenza A & B Note See Note 01/09/22 01/09/22 01/09/22 Range/Units 12:19 14:33 14:33 WBC (4.8-10.8) X10*3/uL RBC (4.20-5.50) X10*6/uL Hgb (12.0-16.0) g/dl Hct (37.0-47.0) % MCV (80.0-98.0) fL MCH (27.0-33.0) pg MCHC (31.0-35.0) g/dl RDW (11.0-16.0) % Plt Count (160-400) X10*3/uL MPV (9.4-12.3) fL Immature Gran % (Auto) (0.0-0.4) % Neut % (Auto) (45-73) % Lymph % (Auto) (20-40) % [place] % (Auto) (2-11) % Eos % (Auto) (0-4) % Baso % (Auto) (0-2) % Lymph # (Auto) (1.2-4.9) X10*3/uL [place] # (Auto) (0.1-1.2) X10*3/uL Eos # (Auto) (0.0-0.4) X10*3/uL Baso # (Auto) (0.0-0.2) X10*3/uL Abs Immat Gran (auto) (0.00-0.03) X10*3/uL Absolute Neuts (auto) (2.0-8.3) x10*3/uL Absolute Nucleated RBC (0.0-0.012) X10*3/uL Nucleated RBC % (auto) (0.0-0.2) /100WBC Sodium 141 (135-145) mmol/L Potassium 4.0 (3.3-5.1) mmol/L Chloride 107 (96-108) mmol/L Carbon Dioxide 23 (22-29) mmol/L Anion Gap 15 (12-20) BUN 14 (9-16) mg/dL Creatinine 0.83 (0.5-1.4) mg/dL Estim Creat Clear Calc 109.7 Estimated GFR > 60 Random Glucose 111 (60-115) mg/dL Calcium 9.0 (8.4-10.2) mg/dL Total Bilirubin 0.5 (0.0-1.0) mg/dL AST 34 H (5-31) U/L ALT 30 (0-31) U/L Alkaline Phosphatase 68 (39-117) U/L Total Protein 7.6 (6.5-8.0) g/dL Albumin 4.4 (3.5-5.0) g/dL Lipase 17 (8-78) U/L Urine Color Dark Yellow Urine Appearance Cloudy Urine pH 6.0 (5.0-9.0) Ur Specific [place] >= 1.030 H (1.005-1.025) Urine Protein 30 (1+) H (Neg-Trace) mg/dL Urine Glucose (UA) Negative (Negative) mg/dL Urine Ketones Trace (Negative) mg/dL Urine Blood Large (3+) H (Negative) Urine Nitrite Negative (Negative) Ur Leukocyte Esterase Trace H (Negative) Urine RBC >20 H (0-2) /HPF Urine WBC 0-5 (0-5) /HPF Ur Squamous Epith Cells 6-10 (0-2) /HPF Urine Bacteria None Seen (None Seen) Hyaline Casts 0-2 (0-2) /LPF Urine Test NEGATIVE (NEGATIVE) COVID-19 (CARLYLE) (Negative) COVID-19 Clin Com Influenza Type A (HERNANDEZ) (Negative) Influenza Type B (HERNANDEZ) (Negative) Influenza A & B Note <ARNOL Campbell - Last Filed: 01/09/22 16:01> Discharge Plan Discharge Clinical Impression: Influenza A <Alba Garcia CNP - Last Filed: 01/09/22 12:13> Patient Disposition: Home, Self-Care <Alba Garcia CNP - Last Filed: 01/09/22 12:13> Instructions: Influenza (ED) <Alba Garcia CNP - Last Filed: 01/09/22 12:13> Additional Instructions: You were found to be POSITIVE for Influenza A today. Treatment is rest and supportive care. Your chest x-ray, labs and oxygen levels were normal. Rest. Drink plenty of fluids. Do not go out in public while you are not feeling well. Take over the counter cold/flu medications as needed for your symptoms. Take Tylenol and/or Motrin as needed for fevers and body aches. Follow up with your doctor this week. If you shortness of breath worsens , if you develop difficulty breathing or any other concerning symptom come back to the ER for further evaluation. <Alba Garcia CNP - Last Filed: 01/09/22 12:13> Prescriptions: New albuterol sulfate 90 mcg/actuation HFA aerosol inhaler 2 inh inhalation QID PRN (Reason: shortness of breath or wheezing) Qty: 6.7 0RF ondansetron 4 mg tablet,disintegrating 4 mg PO Q8H PRN (Reason: nausea and vomiting) Qty: 7 0RF No Action prednisone 20 mg tablet 40 mg PO DAILY 4 Days Qty: 8 0RF mupirocin 2 % ointment 1 appl topical BID 7 Days Qty: 15 0RF clotrimazole-betamethasone 1-0.05 % cream 1 appl topical BID 7 Days Qty: 15 0RF prednisone 20 mg tablet 20 mg PO BID Qty: 10 0RF albuterol sulfate [ProAir HFA] 90 mcg/actuation HFA aerosol inhaler 1 inh inhalation QID PRN (Reason: shortness of breath or wheezing) Qty: 8.5 0RF fluconazole [Diflucan] 150 mg tablet 150 mg PO ONCE Qty: 1 0RF doxycycline hyclate 100 mg capsule 100 mg PO BID 7 Days Qty: 14 0RF <Alba Garcia CNP - Last Filed: 01/09/22 12:13> Referrals: Natasha Tang MD [Primary Care Provider] - <Alba Garcia CNP - Last Filed: 01/09/22 12:13> Stand Alone Forms: Work/School Release <Alba Garcia, NEWS CONTENT SPECIALIST - Last Filed: 01/09/22 12:13>
[2022-01-09 12:06] VITALS: BP 136/77; PULSE 81; RESP 16; TEMP 36.9; O2SAT 98; BMI 33.6
[2022-01-09] MEDS: Ondansetron ODT 4 MG TAB.RAPDIS TRANSLINGU (12:14)
[2022-01-09 12:22] LABS: MANUAL DIFF FLAG NO
[2022-01-09 12:26] LABS: Basophils Percent Auto 0.6 % (0-2); Eosinophils Percent Auto 0.8 % (0-4); Hematocrit 36.3 % (37.0-47.0); Hemoglobin 11.9 g/dl (12.0-16.0); Imm Gran Abs Auto 0.01 X10*3/uL (0.00-0.03); Imm Gran Pct Auto 0.3 % (0.0-0.4); Lymphocytes Absolute Auto 1.7 X10*3/uL (1.2-4.9); Lymphocytes Percent Auto 45.5 % (20-40); Mean Corpuscular HGB Conc 32.8 g/dl (31.0-35.0); Mean Corpuscular Volume 79.3 fL (80.0-98.0); Monocytes Absolute Auto 0.5 X10*3/uL (0.1-1.2); Monocytes Percent Auto 13.2 % (2-11); Neutrophils Absolute Auto 1.4 x10*3/uL (2.0-8.3); Neutrophils Percent Auto 39.6 % (45-73); Platelet Count 280 X10*3/uL (160-400); Red Blood Count 4.58 X10*6/uL (4.20-5.50); Red Cell Distribution Width 13.6 % (11.0-16.0); White Blood Count 3.6 X10*3/uL (4.8-10.8)
[2022-01-09 12:38] LABS: COVID-19 Test Negative (Negative); IDNOW Serial# 16C4AD1C
[2022-01-09 12:42] LABS: IDNOW Serial# BCCEAD1C; Influenza A Positive (Negative); Influenza B2 Negative (Negative)
[2022-01-09 12:50] LABS: Alanine Aminotransferase 30 U/L (0-31); Albumin Level 4.4 g/dL (3.5-5.0); Alkaline Phosphatase 68 U/L (39-117); Anion Gap 15 (12-20); Aspartate Amino Transferase 34 U/L (5-31); Bilirubin Total 0.5 mg/dL (0.0-1.0); Blood Urea Nitrogen 14 mg/dL (9-16); Carbon Dioxide 23 mmol/L (22-29); Chloride 107 mmol/L (96-108); Creatinine Clr Calc Pharmacy 109.7; Estimated Glomerular Filt Rate > 60; Glucose Random 111 mg/dL (60-115); Lipase 17 U/L (8-78); Sodium 141 mmol/L (135-145); Total Protein 7.6 g/dL (6.5-8.0)
[2022-01-09 14:26] VITALS: BP 141/82; PULSE 79; RESP 14; TEMP 36.7; O2SAT 100
[2022-01-09] MEDS: Ketorolac Tromethamine 15 MG/ML VIAL IVPUSH (14:37)
[2022-01-09] MEDS: Lactated Ringers 1,000 ML 999 ML IV (14:37)
[2022-01-09 14:43] LABS: Appearance Urine Cloudy; Color Urine Dark Yellow; Glucose Urine UA Negative (Negative); Leukocyte Esterase Urine Trace (Negative); Nitrite Urine Negative (Negative); Specific Gravity - Urine >= 1.030 (1.005-1.025); UMIC TRIGGER UACC YES; Urine Blood Large (3+) (Negative); Urine Ketones Trace mg/dL (Negative); Urine Protein 30 (1+) mg/dL (Neg-Trace)
[2022-01-09 14:46] LABS: UPreg QC Valid YES; Urine Pregnancy NEGATIVE (NEGATIVE)
[2022-01-09 14:48] LABS: Bacteria Urine None Seen (None Seen); Hyaline Casts Urine 0-2 /LPF (0-2); RBC Urine >20 /HPF (0-2); WBC Urine 0-5 /HPF (0-5)
[2022-01-09 15:44] VITALS: BP 110/75; PULSE 55; RESP 18; TEMP 36.8; O2SAT 100
== END 2022-01-09 16:07 | disposition home or self-care (01) ==
PROVIDERS: Nurse Practitioner Family; Emergency Provider Emergency Medicine; PCP Internal Medicine
DX: J11.1 Influenza due to unidentified influenza virus with other respiratory manifestations (principal); R11.2 Nausea with vomiting, unspecified
CPT/HCPCS: 71046; 80053; 81001; 81025; 83690; 85025; 87502; 87635; 96361; 96374; 99284; J1885

== ENCOUNTER 2022-03-08 15:12 | Emergency (ER) | payer OTHER, SELFPAY ==
[2022-03-08 15:16] VITALS: BP 118/77; BP 134/76; PULSE 86; PULSE 87; RESP 18; TEMP 36.8; O2SAT 98; O2SAT 99; BMI 24.2
--- NOTE | 2022-03-08 15:21 | ED_ITS ---
HPI - Anxiety General Chief Complaint: Anxiety Stated Complaint: Dizzy, hot, feeling faint per EMS Time Seen by Provider: 03/08/22 15:20 Source: patient and EMS Mode of arrival: EMS Limitations: no limitations History of Present Illness HPI narrative: 22 yo female with history of asthma, chronic marijuana user who presents to the ER for evaluation after she started feeling unwell after smoking a marijuana joint. She reports she started to feel her chest pound out of her chest, she was very hot and hyperventilating. Her feet were numb. She went to the bath and took a cold bath but felt like she was going to . Her BF called 911. Symptoms now completely resolved. She reports history of a similar episode a long time ago. MD complaint: anxiety and heart racing Onset (ago): minute(s) Symptoms: dyspnea, palpitations, extremity numbness/tingling and sense of impending doom Severity: severe Quality: improving Place: home History of similar episodes: Yes Provoking factors: other (marijuana) Relieving factors: rest Associated symptoms: denies other symptoms Related Data Previous Rx's Medication Instructions Recorded prednisone 20 mg tablet 40 mg PO DAILY 4 days #8 tabs 02/20/20 albuterol sulfate 90 mcg/actuation 1 inh inhalation QID PRN shortness 07/13/20 aerosol inhaler (ProAir HFA) of breath or wheezing #8.5 grams prednisone 20 mg tablet 20 mg PO BID #10 tabs 07/13/20 clotrimazole-betamethasone 1 1 appl topical BID 7 days #15 grams 10/14/20 %-0.05 % topical cream mupirocin 2 % topical ointment 1 appl topical BID 7 days #15 grams 10/14/20 fluconazole 150 mg tablet 150 mg PO ONCE #1 tab 05/31/21 (Diflucan) doxycycline hyclate 100 mg capsule 100 mg PO BID 7 days #14 caps 08/07/21 albuterol sulfate 90 mcg/actuation 2 inh inhalation QID PRN shortness 01/09/22 aerosol inhaler of breath or wheezing #6.7 grams ondansetron 4 mg disintegrating 4 mg PO Q8H PRN nausea and 01/09/22 tablet vomiting #7 tabs hydroxyzine HCl 25 mg tablet 25 mg PO BID PRN anxiety #10 tabs 03/08/22 Allergies Allergy/AdvReac Type Severity Reaction Status Date / Time animal dander [ANIMAL HAIR] Allergy Severe Hives Verified 03/08/22 15:18 Review of Systems Review of Systems: Yes all other systems are reviewed and are negative [facility] Past Medical History Medical History (Updated 03/08/22 @ 15:32 by ARNOL Campbell) Asthma Social History Social History Alcohol intake: never Patient Tobacco Use Status: Never used Tobacco Advance Directives: No Advance Directives Information Provided: No Physical Exam Vital Signs: Vital Signs: Last Vital Signs Temp 98.3 F 03/08/22 15:16 Pulse 87 03/08/22 15:16 Resp 18 03/08/22 15:16 BP 134/76 03/08/22 15:16 Pulse Ox 99 03/08/22 15:16 O2 Del Method 03/08/22 15:16 BMI result Body Mass Index 24.2 Appearance: Alert. Oriented X3. No acute distress. HEENT: normal inspection CVS: Normal heart rate and rhythm. Pulses normal. Respiratory: No respiratory distress. Lungs CTAB Skin: Skin warm and dry. Normal skin color. Normal skin turgor. No rashes. Extremities: normal inspection x4, normal ROM Neuro: Oriented X 3. No motor deficit. No sensory deficit. Steady gait. nonfocal Course Course Course Narrative: 22 yo female presenting with dizziness, feeling like she was going to pass out or after she smoked marijuana. Symptoms now resolved. VSS and exam unremarkable. Discussed anxiety and management of panic attacks. stable for d/c home. patient agrees with plan. Medical Decision Making Differential Diagnosis Differential Diagnoses: The differential diagnosis associated with the presentation includes anxiety attack, panic, substance related mood disorder, less likely cardiac arrythmia, anemia, or metabolic derrangement. External Record Review External record reviewed: Office record, Outpatient record and Prior outpatient labs Prescription Management I considered prescription management with: Other Critical Care Time Critical Care Time Critical Care Time: No Discharge Plan Discharge Clinical Impression: Acute anxiety Patient Disposition: Home, Self-Care Instructions: Anxiety (ED) Additional Instructions: Take the prescribed medication as needed for anxiety/panic. Do not smoke marijuana, it can make anxiety worse. Follow up with your doctor as needed. Prescriptions: New hydroxyzine HCl 25 mg tablet 25 mg PO BID PRN (Reason: anxiety) Qty: 10 0RF No Action prednisone 20 mg tablet 40 mg PO DAILY 4 Days Qty: 8 0RF mupirocin 2 % ointment 1 appl topical BID 7 Days Qty: 15 0RF clotrimazole-betamethasone 1-0.05 % cream 1 appl topical BID 7 Days Qty: 15 0RF prednisone 20 mg tablet 20 mg PO BID Qty: 10 0RF albuterol sulfate [ProAir HFA] 90 mcg/actuation HFA aerosol inhaler 1 inh inhalation QID PRN (Reason: shortness of breath or wheezing) Qty: 8.5 0RF fluconazole [Diflucan] 150 mg tablet 150 mg PO ONCE Qty: 1 0RF doxycycline hyclate 100 mg capsule 100 mg PO BID 7 Days Qty: 14 0RF albuterol sulfate 90 mcg/actuation HFA aerosol inhaler 2 inh inhalation QID PRN (Reason: shortness of breath or wheezing) Qty: 6.7 0RF ondansetron 4 mg tablet,disintegrating 4 mg PO Q8H PRN (Reason: nausea and vomiting) Qty: 7 0RF Discharge Date/Time: 03/08/22 15:49
== END 2022-03-08 15:49 | disposition home or self-care (01) ==
PROVIDERS: Emergency Provider Emergency Medicine
DX: F41.9 Anxiety disorder, unspecified (principal); F12.90 Cannabis use, unspecified, uncomplicated; J45.909 Unspecified asthma, uncomplicated
CPT/HCPCS: 99281; 99283

== ENCOUNTER 2022-05-02 04:35 | Emergency (ER) | payer OTHER, SELFPAY ==
[2022-05-02 04:38] VITALS: BP 122/68; PULSE 85; RESP 16; TEMP 36.4; O2SAT 95; BMI 35.9
--- NOTE | 2022-05-02 05:34 | ED.URI ---
HPI - URI/Sore Throat General Chief Complaint: General Medical Stated Complaint: Flu like symptoms, sore throat Time Seen by Provider: 05/02/22 05:22 Source: patient Mode of arrival: ambulatory Limitations: no limitations History of Present Illness HPI Narrative: Patient history of asthma been having sore throat for last 4 days also pain in the left ear no fever no chills . Also patient does have dry cough no other family member sick no shortness of breath Related Data Previous Rx's Medication Instructions Recorded prednisone 20 mg tablet 40 mg PO DAILY 4 days #8 tabs 02/20/20 albuterol sulfate 90 mcg/actuation 1 inh inhalation QID PRN shortness 07/13/20 aerosol inhaler (ProAir HFA) of breath or wheezing #8.5 grams prednisone 20 mg tablet 20 mg PO BID #10 tabs 07/13/20 clotrimazole-betamethasone 1 1 appl topical BID 7 days #15 grams 10/14/20 %-0.05 % topical cream mupirocin 2 % topical ointment 1 appl topical BID 7 days #15 grams 10/14/20 fluconazole 150 mg tablet 150 mg PO ONCE #1 tab 05/31/21 (Diflucan) doxycycline hyclate 100 mg capsule 100 mg PO BID 7 days #14 caps 08/07/21 albuterol sulfate 90 mcg/actuation 2 inh inhalation QID PRN shortness 01/09/22 aerosol inhaler of breath or wheezing #6.7 grams ondansetron 4 mg disintegrating 4 mg PO Q8H PRN nausea and 01/09/22 tablet vomiting #7 tabs hydroxyzine HCl 25 mg tablet 25 mg PO BID PRN anxiety #10 tabs 03/08/22 cefuroxime axetil 500 mg tablet 500 mg PO BID #14 tabs 05/02/22 prednisone 20 mg tablet 40 mg PO DAILY #10 tabs 05/02/22 Allergies Allergy/AdvReac Type Severity Reaction Status Date / Time animal dander [ANIMAL HAIR] Allergy Severe Hives Verified 03/08/22 15:18 Review of Systems Review of Systems: Yes all other systems are reviewed and are negative [facility] Past Medical History Medical History Asthma Social History Social History Alcohol intake: never Patient Tobacco Use Status: Never used Tobacco Advance Directives: No Physical Exam Vital Signs: Vital Signs: Last Vital Signs Temp 97.6 F 05/02/22 04:38 Pulse 85 05/02/22 04:38 Resp 16 05/02/22 04:38 BP 122/68 05/02/22 04:38 Pulse Ox 95 05/02/22 04:38 O2 Del Method 05/02/22 04:38 BMI result Body Mass Index 35.9 Appearance: Alert. Oriented X3. No acute distress. ENT: Slight erythema posterior pharynx no exudate Oral Mucosa moist tympanic membrane intact and normal color bilaterally Neck: Normal inspection. Neck supple. CVS: Normal heart rate and rhythm. Pulses normal. Respiratory: No respiratory distress. Equal air entry bilateral, prolonged expiration with dry cough and rhonchi Skin: Skin warm and dry. Normal skin color. Normal skin turgor. Extremities: No lower extremity edema. Neuro: Oriented X 3. Medical Decision Making Medical Decision Making [facility] Narrative: Patient's asthma came with sore throat rapid strep COVID and flu negative discharge patient home on prednisone and Ceftin Lab Data [facility] Lab Attestation statement: I reviewed the patient's lab results. Labs: Lab Results 05/02/22 05/02/22 05/02/22 Range/Units 05:29 05:29 05:29 COVID-19 ([facility]) Negative (Negative) COVID-19 Clin Com See Note Influenza Type A ([facility]) Negative (Negative) Influenza Type B ([facility]) Negative (Negative) Influenza A & B Note See Note S. pyogenes GrpA [facility] Negative (Negative) Discharge Plan Discharge Clinical Impression: Acute bacterial pharyngitis, Asthma Patient Disposition: Home, Self-Care Instructions: Asthma (ED), Pharyngitis (ED) Additional Instructions: Take Antibiotic as prescribed Use your inhaler every 4-6 hours for asthma Prednisone as prescribed Follow with PCP if not better Prescriptions: New prednisone 20 mg tablet 40 mg PO DAILY Qty: 10 0RF cefuroxime axetil 500 mg tablet 500 mg PO BID Qty: 14 0RF No Action prednisone 20 mg tablet 40 mg PO DAILY 4 Days Qty: 8 0RF mupirocin 2 % ointment 1 appl topical BID 7 Days Qty: 15 0RF clotrimazole-betamethasone 1-0.05 % cream 1 appl topical BID 7 Days Qty: 15 0RF prednisone 20 mg tablet 20 mg PO BID Qty: 10 0RF albuterol sulfate [ProAir HFA] 90 mcg/actuation HFA aerosol inhaler 1 inh inhalation QID PRN (Reason: shortness of breath or wheezing) Qty: 8.5 0RF fluconazole [Diflucan] 150 mg tablet 150 mg PO ONCE Qty: 1 0RF doxycycline hyclate 100 mg capsule 100 mg PO BID 7 Days Qty: 14 0RF albuterol sulfate 90 mcg/actuation HFA aerosol inhaler 2 inh inhalation QID PRN (Reason: shortness of breath or wheezing) Qty: 6.7 0RF ondansetron 4 mg tablet,disintegrating 4 mg PO Q8H PRN (Reason: nausea and vomiting) Qty: 7 0RF hydroxyzine HCl 25 mg tablet 25 mg PO BID PRN (Reason: anxiety) Qty: 10 0RF
[2022-05-02 05:43] LABS: IDNOW Serial# 08D9AD1C; Strep A Nucleic Acid Negative (Negative)
--- NOTE | 2022-05-02 05:43 | PC.NURSE ---
Pt aox4 in no apparent distress. Reports sore throat and left ear pain. Non productive cough present. VSS. Nasal and oral swabs collected and sent to the lab. MD at bedside. Will continue to monitor.
[2022-05-02 05:50] LABS: COVID-19 Test Negative (Negative); IDNOW Serial# 9DB6401D; IDNOW Serial# BCCEAD1C; Influenza A Negative (Negative); Influenza B2 Negative (Negative)
[2022-05-02 06:13] VITALS: BP 116/73; PULSE 71; RESP 12; TEMP 36.7; O2SAT 97
[2022-05-02] MEDS: dexAMETHasone 2 MG TABLET 10 MG PO (06:14)
--- NOTE | 2022-05-02 06:20 | PC.NURSE ---
Pt medicated as ordered and tolerated well. Discharge instructions reviewed with pt. Pt verbalizes understanding.
== END 2022-05-02 06:21 | disposition home or self-care (01) ==
PROVIDERS: Emergency Provider Internal Medicine
DX: J02.9 Acute pharyngitis, unspecified (principal); H92.02 Otalgia, left ear; R05.9 Cough, unspecified; R06.02 Shortness of breath; Z20.822 Contact with and (suspected) exposure to COVID-19; Z20.828 Contact with and (suspected) exposure to other viral communicable diseases; Z79.899 Other long term (current) drug therapy
CPT/HCPCS: 36415; 87502; 87635; 87651; 99283; J8540